=== PATIENT | female | born 1955 | race Caucasian/White ===

== ENCOUNTER 2017-02-27 06:09 | Day surgery (SDC) | payer MEDICAID ==
[~2017-02-27] VITALS: Ht 162.6 cm; Wt 71.2 kg
[~2017-02-27 06:09] MED LIST: LATA2.5D2 BOTHEYE; METH25TA5 PO; TIMO15DR11 BOTHEYE
[2017-02-27] MEDS ORDERED: BALANCED SALT IRRIG SOLN COMB1 500ML OP SCH (07:00)
[2017-02-27] MEDS ORDERED: LACTATED RINGERS 1,000 ML IV SCH (07:10)
[2017-02-27] MEDS ORDERED: HYALURONATE SODIUM 14 MG/ML 0.85ML SYRINGE IO ONE ×2 (07:11→09:15)
[2017-02-27] MEDS ORDERED: MORPHINE SULFATE 2 MG/ML CPJ (NOT FOR IM USE) IV PRN (07:30)
[2017-02-27] MEDS ORDERED: MIDAZOLAM HCL 2 MG/2 ML VIAL ONE (07:42)
[2017-02-27] MEDS ORDERED: FENTANYL CITRATE/PF 50MCG/ML 2ML VIAL ONE (07:42)
[2017-02-27] MEDS ORDERED: PROPOFOL 200MG/20ML VIAL IV ONE (07:44)
[2017-02-27] MEDS ORDERED: LIDOCAINE HCL 1% 20ML VIAL (Pyxis) INJ ONE (07:44)
[2017-02-27] MEDS ORDERED: DIPHENHYDRAMINE 50MG/ML VIAL ONE (07:47)
[2017-02-27] MEDS ORDERED: SODIUM CHLORIDE 0.9% 10ML VIAL ONE (08:22)
[2017-02-27] MEDS ORDERED: CEFAZOLIN SODIUM 1000MG/VIAL ONE (08:22)
[2017-02-27 09:55] VITALS: BP 115/71
[2017-02-27] MEDS ORDERED: BUPIVACAINE HCL/PF 0.75% (7.5MG/ML) 10ML ONE (13:41)
[2017-02-27] MEDS ORDERED: LIDOCAINE HCL 2%/EPINEPHRINE 1:100,000 20 ML VIAL INFIL ONE (13:41)
[2017-02-27] MEDS ORDERED: CIPROFLOXACIN 0.3% OPHTH SOLN 2.5ML ONE (13:41)
[2017-02-27] MEDS ORDERED: ACETYLCHOLINE CHLORIDE INTRAOCULAR SOLUTION 1:100 ELECTROLYTE DILUENT IO ONE (13:41)
[2017-02-27] MEDS ORDERED: CYCLOPENTOLATE HCL 1% OPHTH DROPS 2ML ONE (13:41)
[2017-02-27] MEDS ORDERED: PHENYLEPHRINE HCL 10% OPHTH DROPS 5ML ONE (13:41)
[2017-02-27] MEDS ORDERED: PREDNISOLONE ACETATE 1% OPHTH DROPS 1ML ONE (13:41)
[2017-02-27] MEDS ORDERED: BALANCED SALT IRRIG SOLN 15ML ONE (13:41)
[2017-02-27] MEDS ORDERED: TROPICAMIDE 1% OPHTH DROPS 15ML ONE (13:41)
== END 2017-02-27 11:00 | disposition home or self-care (01) ==
LOC: OR 06:09
PROVIDERS: ATTEND Ophthalmology
DX: H25.9 Unspecified age-related cataract (principal); H40.10X0 Unspecified open-angle glaucoma, stage unspecified; H52.202 Unspecified astigmatism, left eye
CPT/HCPCS: 66170; 66625; 66984; 82962; A4216; J0690; J1200; J2250; J2270; J3010; J3490; J7120; V2632; J2704